=== PATIENT | male | born 1980 | race Caucasian/White ===

== ENCOUNTER 2024-06-27 09:55 | Emergency (ER) | payer OTHER, BC, SELFPAY ==
[2024-06-27 09:56] VITALS: BP 155/87; PULSE 88; RESP 18; TEMP 36.9; O2SAT 98; BMI 27.1
--- OUTSIDE RECORDS SUMMARY | 2024-06-27 09:58 | XMS_ITS | Clinical Summary ---
Author Organization [facility] Address [address] [place] [id number] Care Team Providers Care Supply Chain Specialist Name Role Phone Pcp, No Primary Care Provider Unavailabl e Allergies No known active allergies Medications sulfacetamide-disla lfur , 10 - 5%, (SULFACET-R) 10-5 % (w/w) clsr 06/11/2020 Active doxycycline 20 mg tablet Take 20 mg by mouth two times daily with meals. 07/29/2023 Active Soolantra 1 % topical cream APPLY TO FACIAL AREAS ONCE DAILY 02/20/2023 Active Active Problems Problem Noted Date Diagnosed Date Rosacea 07/07/2013 Immunizations Immunization Administration Dates Next Due AMB Influenza, IIV3 (Age >=3 years)(Flu Clinic Only) 02/17/2012,03/16/2008 Influenza A (H1N1), Inactiva yves (Age >=3 Years) 05/29/2009 Influenza, IIV3 (Age >=3 years) 02/20/20 11,03/12/2010,02/14/2009,2006 Influenza, IIV4 02/22/2018,03/16/2016,02/23/2014 MMR 08/24/1995 Td (Age >=7 Years) 06/20/2020 Tdap 03/25/2007 Family History Medical History Relation Name Comments Good Health Brother Good Health Father Good Health Mother Relation Name Status Comments Brother Father Mother Social History Tobacco Use Types Packs/Day Years Used Date Smoking Tobacco: Never Smokeless Tobacco: Never Tobacco Cessation:Counseling Given: Yes Alcohol Use Standard Drinks/Week Comments Yes 0 (1 standard drink = 0.6 oz pur e alcohol) daily, 2 to 3 beers per day. Social Connections Answer Date Recorded Frequency of Communication with Friends and Fami ly Not on file 06/29/2023 Financial Resource Strain Answer Date R ecorded Difficulty of Paying Living Expenses 3 06/24/2022 Difficulty of Paying Living Expenses Not on file 06/24/2022 Food Insecurity Answer Date Recorded Worried About Running Out of Food in the Last Ye ar 1 06/24/2022 Transportation Needs Answer Date Record ed Lack of Transportation (Medical) 1 06/24/2022 Housing Stability Answer Date Recorded Unable to Pay for Housing in the Last Year 1 06/24/2022 Sex and Gender Information Value Date Recorded Sex Assigned at Not on file Legal Sex Male 5:23 AM EXTERMINATOR HELPER Gender Identity Not on file Sexual Orientation Not on file Obstetrics History Last Filed Vital Signs Vital Sign Reading Time Taken Comments Blood Pressure 140/78 09/29/2023 2:12 PM CDT Pulse 92 09/29/2023 2:12 PM CDT Temperature 36.7 C (98 F) 06/20/2020 2:30 PM EXTERMINATOR HELPER Respiratory Rate 18 06/20/2020 2:30 PM EXTERMINATOR HELPER Oxygen Saturation 97% 06/20/2020 2:30 PM EXTERMINATOR HELPER Inhaled Oxygen Concentration - - Weight 90.2 kg (198 lb 12.8 oz) 09/29/2023 2:12 PM CDT Height 182.9 cm (6') 09/29/2023 2:12 PM CDT Body Mass Index 26.96 09/29/2023 2:12 PM CDT Plan of Treatment Health Maintenance Due Date Last Done Comments HIV for age 15-65 1993 Hepatitis C screening for age 18-79 1996 Depression screening for age 12+ 03/16/2017 03/16/2016 Colonoscopy through age 75 09/06/2023 Lipids for age 45-75 09/06/2023 COVID-19 vaccine series ( season) 2023 Influenza Vaccine (#1) 2023 8, 03/16/2016, 02/23/2014, Additional history exists BMI (ht and wt on same day) for age 18+ 09/28/2024 09/29/2023, 06/24/2022, 06/01/2017, Additional history exists Tetanus booster 06/20/2030 06/20/2020, 03/25/2007 Tdap Completed 03/25/2007 Pneumococcal series for age 6-49 Aged Out No longer eligible based on patient's age to complete this topic Insurance [facility] Care Teams Supply Chain Specialist Relationship Specialty Start Date End Date Pcp, No . PCP - General 06/20/20
--- NOTE | 2024-06-27 10:16 | ED.LOWEXIN ---
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 He took off his boot and notice that there is a large swelling over the lateral malleolar region. He was able to bear weight walk, but there is significant pain with this he has no history of previous injury to his right ankle. He did not take any medications or ice. Is it just occurred approximately 30 minutes ago. complaint: ankle injury Onset (ago): minute(s) Injury: Right: ankle Type of Injury: inversion Place: work Severity: moderate Relieving factors: nothing Exacerbating factors: movement and palpation Context: walking Associated symptoms: snap/pop sensation, swelling and able to partially bear weight Other symptoms: none Related Data Home Medications ?Medication ?Instructions ?Recorded ?Confirmed No Known Home Medications 06/27/24 06/27/24 Allergies Allergy/AdvReac Type Severity Reaction Status Date / Time No Known Drug Allergies Allergy Verified 06/27/24 10:01 Review of Systems Status of ROS: Reports: 6 or more systems reviewed and unremarkable except as noted in History and below Exam Narrative: Exam Narrative: On examination he is in no apparent distress he is a bear weight on his ankle, although going up on his toes causes him to have some discomfort, he has an endpoint, in forced inversion of his ankle, the causes him discomfort or or the anterior tell fib region. Anterior drawer test is negative dorsiflexion plantar flexion normal DP and posterior tibial pulses are normal, sensations normal and there is a large amount of swelling noted over the lateral malleolar region. I discussed him we will ice it will give some ibuprofen and I will get an x-ray, as I worry about a malleolar fractures. Const: Vital Signs, click to edit/add: Vital Signs - 24 hr 06/27/24 09:56 Temperature 98.5 F Pulse Rate [Right Pulse Oximeter] 88 Respiratory Rate 18 Blood Pressure [Ri ght Upper Arm] 155/87 H Pulse Oximetry 98 Oxygen Delivery Me thod Room Air Documenting provider has reviewed patient's vital signs: yes Course Course ED Course: X-rays interpreted by myself as negative. [address] [address] Diagnostic Imaging Report Patient: Rebekah Ellis MR#: [id number] : 1980 Acct:[id number] Loc: ED Service Date: 06/27/[address]: Ordering Physician: Nic Haque M.D. Date of Service: 06/27/24 Procedure(s): XR ankle RT min 3V Accession Number(s): [id number] cc: Mandeep More M.D.; Nic Haque M.D.~ For Patients: As a result of the Cures Act, medical imaging exams and procedure reports are released immediately into your electronic medical record. You may view this report before your referring provider. If you have questions, please contact your health care provider. Indication: Injury Technique: A total of three-view of the right ankle were acquired. Comparison: None Findings: Bones: Alignment is normal. No fractures or bone lesions. Joint spaces: Unremarkable. Soft tissues: Soft tissue swelling especially laterally. Tiny calcaneal spurs. Impression: No acute fracture, dislocation or destructive process.Soft tissue swelling. Dictated by Dawood Cottrell MD @ 06/27/2024 10:45:34 AM (Electronically Signed) Radiology is in agreement, I do recommend wearing a cam walker at this point, to help him with healing. Giving him some stability, along with icing and elevation. Ibuprofen. He wants to maintain the stability of his ankle, otherwise will be unstable Vital Signs Vital signs: Initial Vital Signs Temperature 98.5 F 06/27/24 09:56 Temperature Source Temporal Artery Scan 06/27/24 09:56 Pulse Rate 88 06/27/24 09:56 Pulse Rhythm Regular 06/27/24 09:56 Pulse Strength 3+ Normal 06/27/24 09:56 Respiratory Rate 18 06/27/24 09:56 Blood Pressure 155/87 H 06/27/24 09:56 Blood Pressure Mean 109 H 06/27/24 09:56 Blood Pressure Position Sitting 06/27/24 09:56 Pulse Oximetry 98 06/27/24 09:56 Oxygen Delivery Method Room Air 06/27/24 09:56 Vital Signs Temperature 98.5 F 06/27/24 09:56 Pulse Rate 88 06/27/24 09:56 Respiratory Rate 18 06/27/24 09:56 Blood Pressure 155/87 H 06/27/24 09:56 Pulse Oximetry 98 06/27/24 09:56 Oxygen Delivery Method Room Air 06/27/24 09:56 Temperature 98.5 F 06/27/24 09:56 Pulse Rate 88 06/27/24 09:56 Respiratory Rate 18 06/27/24 09:56 Blood Pressure 155/87 H 06/27/24 09:56 Pulse Oximetry 98 06/27/24 09:56 Oxygen Delivery Method Room Air 06/27/24 09:56 Medications Administered Medications: Discontinued Medications Generic Name Dose Route Start Last Admin Trade Name Edvinq PRN Reason Stop Dose Admin Ibuprofen 800 mg 06/27/24 10:12 06/27/24 10:19 Ibuprofen 400 Mg Tablet PO 06/27/24 10:13 800 mg ONCE ONE Administration Discharge Plan Discharge Clinical Impression: Right ankle strain Patient Disposition: Home, Self-Care Condition: Improved Instructions: Ankle Strain (ED), Cold Compress or Soak (ED), Walking Boot (ED) Additional Instructions: Home rest use of the walking boot for the next 10 days is suggested, ibuprofen 800 mg 3 times a day with food is also helpful, elevations helpful as much as he can and icing for the 1st 2-3 days 15 minutes on 15 minutes off. I did not see evidence of a fracture, once the radiologist read this if there is 1, I will call you, I think this is unlikely. After 10 days it would probably be advantageous to wear a lace-up boot for the next 3-4 weeks. For support. Activity Level: Light activity Prescriptions: No Action No Known Home Medications Follow Up/Referrals: Mandeep More MD [Primary Care Provider] - Stand Alone Forms: [employer] Info Instructions
[2024-06-27] MEDS: IBUPROFEN 400 MG TABLET 800 MG PO (10:19)
--- OUTSIDE RECORDS SUMMARY | 2024-06-27 11:16 | XMS_ITS | Clinical Summary ---
Author Organization [facility] Address [address] [place] [id number] Care Team Providers Care Resort Desk Clerk Name Role Phone Pcp, No Primary Care [...] on file Legal Sex Male 5:23 AM POLICE JUDGE Gender Identity Not on file Sexual Orientation Not on file Obstetrics History Last Filed Vital Signs Vital Sign Reading Time Taken Comments Blood Pressure 140/78 09/29/2023 2:12 PM CDT Pulse 92 09/29/2023 2:12 PM CDT Temperature 36.7 C (98 F) 06/20/2020 2:30 PM POLICE JUDGE Respiratory Rate 18 06/20/2020 2:30 PM POLICE JUDGE Oxygen Saturation 97% 06/20/2020 2:30 PM POLICE JUDGE Inhaled Oxygen Concentration - - Weight 90.2 [...] patient's age to complete this topic Insurance [facility] Care Teams Resort Desk Clerk Relationship Specialty Start Date End Date Pcp, No . PCP - General 06/20/20
== END 2024-06-27 11:24 | disposition home or self-care (01) ==
PROVIDERS: Emergency Provider Family Medicine; PCP Family Medicine
DX: S96.911A Strain of unspecified muscle and tendon at ankle and foot level, right foot, initial encounter (principal); X50.1XXA Overexertion from prolonged static or awkward postures, initial encounter
CPT/HCPCS: 73610; 99283; A9270